=== PATIENT | female | born 1955 | race Caucasian/White ===

== ENCOUNTER 2023-05-27 10:16 | Inpatient (IN) ==
--- NOTE | 2023-05-05 11:04 | PAT Medication Instructions ---
Medication Instructions Date of Service May 05, 2023 Home Medications alprazolam 0.25 mg tablet (Xanax) 0.25 mg PO TID PRN calcium 500 mg tablet 600 mg PO QAM cholecalciferol (vitamin D3) 25 mcg (1,000 unit) chewable tablet (Vitamin D3) 25 mcg PO QAM cyanocobalamin (vitamin B-12) 500 mcg chewable tablet 5,000 mcg PO QAM cyclobenzaprine 10 mg tablet 10 mg PO TID PRN escitalopram oxalate 10 mg tablet (Lexapro) 10 mg PO HS gabapentin 300 mg capsule 300 mg PO BID gabapentin 300 mg capsule 600 mg PO HS levothyroxine 50 mcg tablet 50 mcg PO QAM losartan 100 mg tablet (Cozaar) 100 mg PO BID magnesium 250 mg tablet 250 mg PO HS oxycodone 5 mg tablet 5 - 10 mg PO Q4H PRN pantoprazole 40 mg tablet,delayed release (Protonix) 40 mg PO QAM promethazine 25 mg tablet 25 mg PO DIRECTED PRN sumatriptan succinate 100 mg tablet (Imitrex) 100 mg PO DIRECTED PRN sumatriptan succinate 6 mg/0.5 mL subcutaneous pen injector (Imitrex STATdose Pen) 6 mg subcut DIRECTED PRN Continue as directed promethazine 25 mg tablet 25 mg PO DIRECTED PRN(if needed) sumatriptan succinate 100 mg tablet (Imitrex) 100 mg PO DIRECTED PRN(if needed) sumatriptan succinate 6 mg/0.5 mL subcutaneous pen injector (Imitrex STATdose Pen) 6 mg subcut DIRECTED PRN(if needed) DO NOT take the morning of surgery calcium 500 mg tablet 600 mg PO QAM cholecalciferol (vitamin D3) 25 mcg (1,000 unit) chewable tablet (Vitamin D3) 25 mcg PO QAM cyanocobalamin (vitamin B-12) 500 mcg chewable tablet 5,000 mcg PO QAM losartan 100 mg tablet (Cozaar) 100 mg PO BID Take morning of surgery With a small sip of water, OTHERWISE NOTHING TO EAT OR DRINK AFTER MIDNIGHT: alprazolam 0.25 mg tablet (Xanax) 0.25 mg PO TID PRN(if needed) cyclobenzaprine 10 mg tablet 10 mg PO TID PRN(if needed) gabapentin 300 mg capsule 300 mg PO BID levothyroxine 50 mcg tablet 50 mcg PO QAM oxycodone 5 mg tablet 5 - 10 mg PO Q4H PRN(if needed) pantoprazole 40 mg tablet,delayed release (Protonix) 40 mg PO QAM Take evening before surgery alprazolam 0.25 mg tablet (Xanax) 0.25 mg PO TID PRN(if needed) cyclobenzaprine 10 mg tablet 10 mg PO TID PRN(if needed) escitalopram oxalate 10 mg tablet (Lexapro) 10 mg PO HS gabapentin 300 mg capsule 300 mg PO BID gabapentin 300 mg capsule 600 mg PO HS losartan 100 mg tablet (Cozaar) 100 mg PO BID magnesium 250 mg tablet 250 mg PO HS oxycodone 5 mg tablet 5 - 10 mg PO Q4H PRN(if needed) Other Notes If you have any questions please call us at [phone] or [phone] or [phone] or [phone]
--- NOTE | 2023-05-08 14:33 | Anesthesiology Consultation ---
Date of Service May 08, 2023 Assessment & Plan (1) Encounter for pre-operative examination: Patient unable to void at [facility] clinic, will complete UA at a local lab. Chart Review Chart Review: Pending: Refer to Additional Notes / Consult section and Patient seen in Pre Admission Testing Teaching & Discussion Pre-Anesthesia Teaching/Discussion Notes: Instructed NPO after midnight before surgery, except medications with 15 cc of water. Medication instructions provided according to the [facility] guidelines. History Surgery Operation Date: 05/27/23 10:05 Proposed Procedures p L3-L5 Decompression and Fusion, Spinal Cord Monitoring - Natan Patton DO Height/Weight Height: 5 ft 7 in Weight: 85.7 kg Allergies Allergy/AdvReac Type Severity Reaction Status Date / Time No Known Allergies Allergy Verified 05/05/23 09:02 Medications Home Medications Medication Instructions Recorded Confirmed Last Taken alprazolam 0.25 mg tablet (Xanax) 0.25 mg PO TID PRN Anxiety 05/05/23 05/05/23 Unknown calcium 500 mg tablet 600 mg PO QAM 05/05/23 05/05/23 Unknown cholecalciferol (vitamin D3) 25 25 mcg PO QAM 05/05/23 05/05/23 Unknown mcg (1,000 unit) chewable tablet (Vitamin D3) cyanocobalamin (vitamin B-12) 500 5,000 mcg PO QAM 05/05/23 05/05/23 Unknown mcg chewable tablet cyclobenzaprine 10 mg tablet 10 mg PO TID PRN Spasms 05/05/23 05/05/23 Unknown escitalopram oxalate 10 mg tablet 10 mg PO HS 05/05/23 05/05/23 Unknown (Lexapro) gabapentin 300 mg capsule 300 mg PO BID 05/05/23 05/05/23 Unknown gabapentin 300 mg capsule 600 mg PO HS 05/05/23 05/05/23 Unknown levothyroxine 50 mcg tablet 50 mcg PO QAM 05/05/23 05/05/23 Unknown losartan 100 mg tablet (Cozaar) 100 mg PO BID 05/05/23 05/05/23 Unknown magnesium 250 mg tablet 250 mg PO HS 05/05/23 05/05/23 Unknown oxycodone 5 mg tablet 5 - 10 mg PO Q4H PRN Pain 05/05/23 05/05/23 Unknown pantoprazole 40 mg tablet,delayed 40 mg PO BID 05/05/23 05/08/23 Unknown release (Protonix) promethazine 25 mg tablet 25 mg PO DIRECTED PRN Migraine 05/05/23 05/05/23 Unknown Headache sumatriptan succinate 100 mg 100 mg PO DIRECTED PRN Migraine 05/05/23 05/05/23 Unknown tablet (Imitrex) Headache sumatriptan succinate 6 mg/0.5 mL 6 mg subcut DIRECTED PRN 05/05/23 05/05/23 Unknown subcutaneous pen injector (Imitrex Migraine Headache STATdose Pen) Past Medical History Medical History (Updated 05/08/23 @ 14:44 by Nuris Holguin PA-C) Hx of concussion fell on ice 20 yrs ago > resolved Nausea and vomiting after administration of anesthetic agent in past, but none with more recent procedures Nerve pain in back and legs; denies recent change or worsening GERD (gastroesophageal reflux disease) controlled, stable per pt Hiatal hernia Hypothyroidism Depression Anxiety Migraine Hypertension controlled, stable per pt Patient denies h/o stroke, seizures, heart attack, heart failure, DM, blood clots/DVTs or blood transfusions. Exercise / Class Metabolic Activity III < 4 Walking/Shop/Light housework (limitations with current orthopedic status, denies chest discomfort or shortness of breath with usual activities) Past Surgical History Surgical History History of ankle surgery right History of carpal tunnel release right History of esophagogastroduodenoscopy (EGD) History of colonoscopy History of hysterectomy History of cholecystectomy History of appendectomy [place] teeth extracted History of nasal septoplasty History of tonsillectomy History of cardiac cath very remote hx > no stents Past Anesthesia History No Hx of Anesthesia Complications and No Family Hx of Anesthesia Complications History of PONV No Hx of Motion Sickness and History of PONV (remote, no issues with recent procedures) Social History Smoking Status: Former smoker Do You Dip or Chew Tobacco: No Smoking End Date: 20 yrs ago Hx Alcohol Use: Yes Alcohol type: wine alcohol intake frequency: holidays/special occasions only Hx Substance Use: Yes substance use type: marijuana Substance Use Type Other:: marijuana > uses on rare occ. advised 3 day or longer hold Review of Systems Snoring, denies witnessed apneas. Patient denies chest pain, shortness of breath, dyspnea on exertion, fever, chills, cough, wheezing, or palpitations. Physical Exam Vital Signs Vitals BP 121/74 P 73 TEMP 97.5 SP02 95% on RA RESP 17 Physical Patient resting comfortably in chair in no acute distress, alert and oriented, responding appropriately throughout visit Full cervical extension range of motion without pain TMD 3 finger breadths Mallampati Score 2 Dentition: chipped tooth front upper, denies loose teeth, caps/crowns, implants or bridges Lungs: normal respiratory effort. Good air movement, clear throughout to auscultation, no adventitious breath sounds Cardiac: regular rate and rhythm, no murmurs noted Carotid arteries: negative bruit bilat Lab Results Anesthesia Preop Results Results Anesthesia Widget: PT 11.0 Seconds (9.0-12.0) 05/08/23 PTT 30 Seconds (21-31) 05/08/23 INR 1.0 (0.9-1.1) 05/08/23 Blood Type B Positive 05/08/23 Antibody Screen NEGATIVE 05/08/23 Testing Laboratory Results 05/07/2023 WBC: 5.1 H/H: 13/37 PLATELETS: 298 SODIUM: 141 POTASSIUM: 4.5 CHLORIDE: 105 CO2: 29 BUN: 12 CREATININE: 0.7 GLUCOSE: 91 Electrocardiogram Date: 09/12/22 Sinus rhythm, rate 68 bpm Chest X-Ray Date: 05/08/23 A few left basilar linear densities favor scarring or subsegmental atelectasis. Otherwise, the lungs are clear. The heart is normal in size. No pleural effusions. No pneumothorax. No acute fractures. Prior cholecystectomy. Eventration of the right hemidiaphragm is noted. IMPRESSION: No acute process. Echocardiogram Date: 03/27/21 EF 55-60% Normal LV wall motion Grade I diastolic dysfunction No significant valvular pathology Stress Test Date: 03/27/21 METS 10 MPHR 83% Inconclusive secondary to inability to achieve target HR No ischemic ECG changes at the level of exercise achieved
[~2023-05-27 10:16] MED LIST: ACETAMINOPHEN 500 MG TAB PO SCH; CeleBREX 200 MG CAP PO SCH; GABAPENTIN 300 MG CAP PO SCH; LACTATED RINGER'S 1,000 ML IV SCH; LR 60ML/HR IV SCH; ceFAZolin 2000MG 2,000 MG/15 ML SYR IV SCH
[2023-05-27] MEDS ORDERED: ONDANSETRON INJ 2 MG/ML 2 ML VIAL ONE (10:36)
[2023-05-27] MEDS ORDERED: DEXAMETHASONE SOD INJ 4 MG/ML VIAL ONE (10:36)
[2023-05-27] MEDS ORDERED: LIDOCAINE 2% 2 ML VIAL/AMP(20MG/ML) INFIL ONE ×2 (10:36→10:37)
[2023-05-27] MEDS ORDERED: PROPOFOL IV EMULSION 10 MG/ML 20 ML VIAL IV ONE ×2 (10:36→14:44)
[2023-05-27] MEDS ORDERED: MIDAZOLAM HCL 1 MG/ML 2ML VIAL ONE (10:37)
[2023-05-27] MEDS ORDERED: fentaNYL citrate PF 100 MCG/2 ML VIAL ONE ×2 (10:37→13:16)
[2023-05-27] MEDS ORDERED: ROCURONIUM BROMIDE 10 MG/ML 5 ML VIAL IV ONE ×10 (10:37→13:17)
[2023-05-27] MEDS ORDERED: SCOPOLAMINE 1 MG TDSY TD ONE ×2 (11:00→11:01)
[2023-05-27] MEDS ORDERED: ONDANSETRON INJ 2 MG/ML 2 ML VIAL IV PRN ×2 (11:01→16:23)
[2023-05-27] MEDS ORDERED: ATROPINE SULFATE 0.1 MG/ML 10ML SYR IV PRN (11:01)
[2023-05-27] MEDS ORDERED: ePHEDrine sulfate 50 MG/ML AMP IV PRN (11:01)
[2023-05-27] MEDS ORDERED: HYDROmorphone INJ 1 MG/ML SYRINGE IV PRN (11:01)
--- NOTE | 2023-05-27 12:22 | History & Physical Bridge Note ---
Date of Service May 27, 2023 History & Physical Bridge Note I have examined the patient, reviewed the History & Physical and in the interval since the performance of the History & Physical I have noted the following changes of clinical significance: no changes noted
--- NOTE | 2023-05-27 12:23 | History & Physical Report ---
Date of Service May 27, 2023 Assessment & Plan (1) Neurogenic claudication due to lumbar spinal stenosis: Plan: L3-5 decompression and fusion History of Present Illness Chief Complaint: Back and leg pain Primary Care Provider: Natan Burgess Allergies Allergy/AdvReac Type Severity Reaction Status Date / Time No Known Allergies Allergy Verified 05/27/23 10:41 Home Medications Medication Instructions Recorded Confirmed Type alprazolam 0.25 mg tablet (Xanax) 0.25 mg PO TID PRN Anxiety 05/05/23 05/27/23 History calcium 500 mg tablet 600 mg PO QAM 05/05/23 05/27/23 History cholecalciferol (vitamin D3) 25 25 mcg PO QAM 05/05/23 05/27/23 History mcg (1,000 unit) chewable tablet (Vitamin D3) cyanocobalamin (vitamin B-12) 500 5,000 mcg PO QAM 05/05/23 05/27/23 History mcg chewable tablet cyclobenzaprine 10 mg tablet 10 mg PO TID PRN Spasms 05/05/23 05/27/23 History escitalopram oxalate 10 mg tablet 10 mg PO HS 05/05/23 05/27/23 History (Lexapro) gabapentin 300 mg capsule 300 mg PO BID 05/05/23 05/27/23 History gabapentin 300 mg capsule 600 mg PO HS 05/05/23 05/27/23 History levothyroxine 50 mcg tablet 50 mcg PO QAM 05/05/23 05/27/23 History losartan 100 mg tablet (Cozaar) 100 mg PO BID 05/05/23 05/27/23 History magnesium 250 mg tablet 250 mg PO HS 05/05/23 05/27/23 History oxycodone 5 mg tablet 5 - 10 mg PO Q4H PRN Pain 05/05/23 05/27/23 History pantoprazole 40 mg tablet,delayed 40 mg PO BID 05/05/23 05/27/23 History release (Protonix) promethazine 25 mg tablet 25 mg PO DIRECTED PRN Migraine 05/05/23 05/27/23 History Headache sumatriptan succinate 100 mg 100 mg PO DIRECTED PRN Migraine 05/05/23 05/27/23 History tablet (Imitrex) Headache sumatriptan succinate 6 mg/0.5 mL 6 mg subcut DIRECTED PRN 05/05/23 05/27/23 History subcutaneous pen injector (Imitrex Migraine Headache STATdose Pen) Past Med/Surg History Medical History (Updated 05/27/23 @ 12:22 by Natan Patton DO) Hx of concussion fell on ice 20 yrs ago > resolved Nausea and vomiting after administration of anesthetic agent in past, but none with more recent procedures Nerve pain in back and legs; denies recent change or worsening GERD (gastroesophageal reflux disease) controlled, stable per pt Hiatal hernia Hypothyroidism Depression Anxiety Migraine Hypertension controlled, stable per pt Surgical History History of ankle surgery right History of carpal tunnel release right History of esophagogastroduodenoscopy (EGD) History of colonoscopy History of hysterectomy History of cholecystectomy History of appendectomy [place] teeth extracted History of nasal septoplasty History of tonsillectomy History of cardiac cath very remote hx > no stents Social History Smoking Status: Former smoker Smoking End Date: 20 yrs ago; Second Hand Exposure: No; Do You Dip or Chew Tobacco: No; Tobacco Cessation Education Requested by Patient: No Hx Alcohol Use: Yes Alcohol type: wine Hx Substance Use: Yes Substance Use Type Other:: marijuana > uses on rare occ. advised 3 day or longer hold Preferred Language: Japanese Communication Ability: Effective Chess Instructor Required: No Beliefs That Will Affect Care: None Current Living Situation: Alone Other Information That Helps Us Care for You: No Feels Safe at Home: Yes Safety Concerns: Feels Safe At This Time Assistive Devices: Glasses and Walker Physical Exam Physical Exam: Patient is alert and oriented Heart regular rhythm Lungs clear Results & Data Results & Data Vital Signs (Past 12 Hours) Vital Signs Temp Pulse Resp BP Pulse Ox O2 Del Method 05/27/23 10:47 36.5 C 80 20 155/92 H 99 Room Air
[2023-05-27] MEDS ORDERED: FAMOTIDINE/PF 20 MG/2 ML VIAL IV ONE (12:41)
[2023-05-27] MEDS ORDERED: ceFAZolin 330 MG/ML 1 GM VIAL ONE (12:45)
[2023-05-27] MEDS ORDERED: BUPIVACAINE/EPINEPHRINE 0.25% 1:200,000 30 ML VIAL ONE (12:45)
[2023-05-27] MEDS ORDERED: SUGAMMADEX SODIUM 200 MG/2 ML VIAL IV ONE (13:18)
[2023-05-27] MEDS ORDERED: FLOSEAL HEMOSTATIC MATRIX 10ML TOP ONE (13:53)
[2023-05-27] MEDS ORDERED: ePHEDrine sulfate 50 MG/5 ML SYR ONE (14:22)
[2023-05-27] MEDS ORDERED: MoRPHine SULFATE 2 MG/ML CARP ONE (14:42)
--- NOTE | 2023-05-27 15:03 | Operative Report ---
Post Operative Report Pre & Post Diagnosis Operation Date: 05/27/23 11:25 Pre-Op Diagnosis: Neurogenic claudication due to lumbar spinal stenosis Compression fracture of L5. Spondylolisthesis at L4-L5. Post-Op Diagnosis: Same I identified the patient and participated in the time-out.: Yes Procedure Operation Date: 05/27/23 11:25 Actual Procedures #1 revision decompression with bilateral medial facetectomies and foraminotomies L3-L4 L4-5. #2 posterior spinal fusion L3-L4 L4-L5. #3 kyphoplasty of L4-5. #4 posterior spinal fusion L3-L5. #5 placement of posterior instrumentation L3- L5. #6 interbody fusion L3-L4 open #7 placement of Spira 10 x 26 mm cage at L3- L4. #8 placement locally harvested morselized autograft in the posterior gutters. #9 placement of I factor in the interbody space and infuse collagen sponge, and bone graft in the posterior lateral gutters. Surgeon Natan Patton, College Recruiter Sudarshan Sigala Estimated Blood Loss 150 Findings Consistent with Post-Op Diagnosis Specimens None Indications This is a 67-year-old female who presents above-mentioned diagnosis of failed course of nonoperative care she is here for surgical intervention. Description of Procedure Patient met with identified informed consent obtained. Patient was then taken to the operative suite underwent patient placed in a prone position on the [place] table on top the Boni frame. All bony promises well-padded eyes inspected to ensure no external pressure placed upon the. This point the lumbar spine was prepped and draped in normal sterile fashion. Sharp dissection with the assistance of Bovie cautery was performed down to exposing the remaining lamina of L3-L4 and the transverse processes of L3 L4-5 bilaterally. From caudal to cephalad fashion revision complete laminectomy of L4 and L3 was performed including bilaterally facetectomies and foraminotomies addressing severe spinal stenosis. Pedicle screws then placed at L3 L4-5 bilaterally with the assistance of fluoroscopy. Prior to placement of the L5 pedicle screws Kyphon balloons were inserted in the vertebral body sequentially inflated with fluoroscopic visualization and approximately 4 and half cc of Kyphon cement injected into the L5 vertebral body for kyphoplasty. This was followed by placement of the L5 pedicle screws. Appropriate size karine was then contoured and placed. By way of transforaminal approach on the left complete discectomy of L3-L4 was performed endplates guarded to subcortical bleeding bone and a 10 x 26 mm Spira cage with I factor tapped in position. The rods and locked in final position bilaterally. The transverse processes of L3 L4-5 burred to subcortical bleeding bone. Infuse collagen sponge combined with remaining bone graft was placed in the posterior gutters. 15 round STACY drain inserted. The incision was then closed with 1 Vicryl to fascia 2-0 Vicryl subcutaneously and 4 Monocryl for final skin closure. Steri-Strips sterile dressing placed. Patient waken taken to PACU in stable condition. Please note spinal cord monitoring visualized at the procedure no changes noted. Lastly Sudarshan Sigala was present at the entire procedure and on the patient positioning complex portion of the surgery and final skin closure. I attest to the content of the Intraoperative Record and any orders documented therein. Any exceptions are noted below.
--- NOTE | 2023-05-27 15:15 | Fluoroscopy Report ---
INTRAOPERATIVE RADIOGRAPHS CLINICAL HISTORY: L3-L5 spinal fusion. Fluoro time: 113 seconds Ka,r: 110.87 mGy FINDINGS: 3 spot fluoroscopic views of the lumbar spine are presented. There has been discectomy at L 3-L4 with laminectomy and posterior fusion at L3-L5. Interpedicular screws are present at all levels. The orthopedic hardware appears intact. Suspect vertebroplasty cement in the body of L5. IMPRESSION: Intraoperative images from lumbar spinal fusion surgery as above. Electronically signed by: Gilbert Sorensen M.D. 05/27/2023 3:14 PM
[2023-05-27] MEDS: fentaNYL citrate PF 100 MCG/2 ML VIAL IV PRN ×2 (15:58→16:03)
[2023-05-27] MEDS ORDERED: METOCLOPRAMIDE HCL INJ 5 MG/ML 2 ML VIAL IV PRN (16:23)
[2023-05-27] MEDS ORDERED: ONDANSETRON 4 MG OD TAB PO PRN (16:23)
[2023-05-27] MEDS ORDERED: LORazepam 0.5 MG in SYRINGE 0.25 ML IV PRN (16:23)
[2023-05-27] MEDS ORDERED: FAMOTIDINE 20 MG TAB PO PRN (16:23)
[2023-05-27] MEDS ORDERED: bisacodyL 10 MG SUPP PR PRN (16:23)
[2023-05-27] MEDS ORDERED: LORazepam 0.5 MG TAB PO PRN (16:23)
[2023-05-27] MEDS ORDERED: ALUMINUM/MAGNESIUM SUSP 30 ML UDC PO PRN (16:23)
[2023-05-27] MEDS ORDERED: diphenhydrAMINE Capsule 25 MG CAP PO PRN (16:23)
[2023-05-27] MEDS ORDERED: ALPRAZolam 0.25 MG TABLET PO PRN (16:23)
[2023-05-27] MEDS ORDERED: traMADol HCL 50 MG TABLET PO PRN (16:23)
[2023-05-27] MEDS ORDERED: SOD PHOSPHATE/SOD BIPHOSPHATE ENEMA 132 ML BTL PR PRN (16:23)
[2023-05-27] MEDS ORDERED: NALOXONE HCL 0.4 MG/1 ML VIAL/CARP IV PRN (16:23)
[2023-05-27] MEDS ORDERED: PROMETHAZINE HCL 25 MG TAB PO PRN (16:23)
[2023-05-27] MEDS ORDERED: PROMETHAZINE HCL 12.5 MG in SODIUM CHLORIDE 0.9% 50 ML IV PRN (16:23)
[2023-05-27] MEDS ORDERED: ACETAMINOPHEN 500 MG TAB PO PRN (16:23)
[2023-05-27] MEDS ORDERED: MAGNESIUM HYDROXIDE SUSP 30 ML UDC PO PRN (16:23)
[2023-05-27] MEDS ORDERED: ACETAMINOPHEN 1,000 MG/100 ML VIAL IV PRN (16:23)
[2023-05-27] MEDS ORDERED: HYDROmorphone INJ 0.5 MG/0.5 ML SYR IV PRN (16:23)
[2023-05-27] MEDS ORDERED: DO NOT ADMINISTER PNEUMOCOCCAL VACCINE PRN (16:23)
[2023-05-27] MEDS ORDERED: DO NOT ADMINISTER FLU VACCINE PRN (16:23)
[2023-05-27] MEDS ORDERED: SUMATRIPTAN SUCCINATE 6 MG/0.5 ML SQ PRN (16:23)
[2023-05-27] MEDS ORDERED: [UNRECOGNIZED DRUG - OTHER] SQ PRN (16:23)
[2023-05-27] MEDS ORDERED: SUMAtriptan succinate 100 MG TAB PO PRN (16:23)
[2023-05-27] MEDS: SODIUM CHLORIDE 0.9% 1,000 ML IV SCH (16:49)
[2023-05-27] MEDS: CHECK SCOPOLAMINE PATCH PLACEMENT SCH (17:14)
[2023-05-27] MEDS: oxyCODONE HCL IR 5 MG TAB (IMMEDIATE RELEASE) PO PRN (17:36)
--- NOTE | 2023-05-27 17:40 | Hospitalist Consultation ---
Date of Consultation May 27, 2023 Assessment & Plan (1) Neurogenic claudication due to lumbar spinal stenosis: POD#0 L3-L5 decompression and fusion by Dr. Patton Activity and wound care orders as per ortho Pain control with bowel regimen PT/OT Monitor H/H for acute blood loss anemia and transfuse blood products PRN EBL 150 cc (2) Hypertension: Chronic, stable Noted that patient takes losartan 100 mg twice daily which is above recommended dose. Dose confirmed via outpatient PCP note. (3) Hypothyroidism: Chronic, stable Continue levothyroxine (4) GERD (gastroesophageal reflux disease): Chronic, stable Continue PPI (5) Depression: (6) Anxiety: Chronic, stable Continue home meds DVT PROPHYLAXIS TEDs/SCDs as per spine Ortho Patient seen in collaboration with Dr. Mancia. Thank you for this consultation. We will follow the patient with you during their hospital stay. You can reach a [facility] of the [facility]12 via the [facility] role in [place] Text. Supervising Physician Co-Signing Physician Notes Attending addendum The patient was seen and examined in medical floor She is a status post L3-L5 decompression fusion Minimal pain at the back On examination Lying in bed comfortably Remains hemodynamically stable Chest-clear to auscultate bilaterally Heart-S1, [id number] Abdomen-benign Extremities-1+ edema right side but negative on the left Labs and imaging studies reviewed Status post lumbar back surgery remains medically stable Agree with assessment and plan as outlined above by Wilma Mancia History of Present Illness Reason for Consultation: Postop medical management Requesting Physician: Dr. Patton Attending Physician: Natan Patton DO History of Present Illness 67-year-old female with PMH HTN, hypothyroidism, GERD, migraines, anxiety, depression, and other problems listed below who is s/p L3-L5 decompression and fusion today by Dr. Patton. History is obtained from the patient and review of PCP records scanned into the chart. Postoperative, the patient is doing well. She reports her pain is well-controlled. She denies numbness, tingling, weakness of the lower extremities. No chest pain or shortness of breath. Denies lightheadedness and dizziness. No abdominal pain or nausea. Swift catheter is in place draining clear yellow urine. Allergies Allergy/AdvReac Type Severity Reaction Status Date / Time No Known Allergies Allergy Verified 05/27/23 10:41 Home Medications Medication Instructions Recorded Confirmed Type alprazolam 0.25 mg tablet (Xanax) 0.25 mg PO TID PRN Anxiety 05/05/23 05/27/23 History calcium 500 mg tablet 600 mg PO QAM 05/05/23 05/27/23 History cholecalciferol (vitamin D3) 25 25 mcg PO QAM 05/05/23 05/27/23 History mcg (1,000 unit) chewable tablet (Vitamin D3) cyanocobalamin (vitamin B-12) 500 5,000 mcg PO QAM 05/05/23 05/27/23 History mcg chewable tablet cyclobenzaprine 10 mg tablet 10 mg PO TID PRN Spasms 05/05/23 05/27/23 History escitalopram oxalate 10 mg tablet 10 mg PO HS 05/05/23 05/27/23 History (Lexapro) gabapentin 300 mg capsule 300 mg PO BID 05/05/23 05/27/23 History gabapentin 300 mg capsule 600 mg PO HS 05/05/23 05/27/23 History levothyroxine 50 mcg tablet 50 mcg PO QAM 05/05/23 05/27/23 History losartan 100 mg tablet (Cozaar) 100 mg PO BID 05/05/23 05/27/23 History magnesium 250 mg tablet 250 mg PO HS 05/05/23 05/27/23 History oxycodone 5 mg tablet 5 - 10 mg PO Q4H PRN Pain 05/05/23 05/27/23 History pantoprazole 40 mg tablet,delayed 40 mg PO BID 05/05/23 05/27/23 History release (Protonix) promethazine 25 mg tablet 25 mg PO DIRECTED PRN Migraine 05/05/23 05/27/23 History Headache sumatriptan succinate 100 mg 100 mg PO DIRECTED PRN Migraine 05/05/23 05/27/23 History tablet (Imitrex) Headache sumatriptan succinate 6 mg/0.5 mL 6 mg subcut DIRECTED PRN 05/05/23 05/27/23 History subcutaneous pen injector (Imitrex Migraine Headache STATdose Pen) Patient History Medical History (Updated 05/27/23 @ 17:38 by IZZY Beckham) GERD (gastroesophageal reflux disease) controlled, stable per pt Hypothyroidism Hypertension controlled, stable per pt Hx of concussion fell on ice 20 yrs ago > resolved Nausea and vomiting after administration of anesthetic agent in past, but none with more recent procedures Nerve pain in back and legs; denies recent change or worsening Hiatal hernia Depression Anxiety Migraine Surgical History History of ankle surgery right History of carpal tunnel release right History of esophagogastroduodenoscopy (EGD) History of colonoscopy History of hysterectomy History of cholecystectomy History of appendectomy [place] teeth extracted History of nasal septoplasty History of tonsillectomy History of cardiac cath very remote hx > no stents Social History Smoking Status: Former smoker Smoking End Date: 20 yrs ago; Second Hand Exposure: No; Do You Dip or Chew Tobacco: No; Tobacco Cessation Education Requested by Patient: No Hx Alcohol Use: Yes Alcohol type: wine Hx Substance Use: Yes Substance Use Type Other:: marijuana > uses on rare occ. advised 3 day or longer hold Preferred Language: [place] Zealander Communication Ability: Effective Manager Reporting Required: No Beliefs That Will Affect Care: None Current Living Situation: Alone Other Information That Helps Us Care for You: No Feels Safe at Home: Yes Safety Concerns: Feels Safe At This Time Assistive Devices: Glasses and Walker Physical Exam Constitutional: WD/WN, vitals as above no acute distress Eyes: PERRL, conjunctivae normal, anicteric sclerae ENMT: external ear and nose normal, oropharynx normal Respiratory: normal respiratory effort, lungs clear to auscultation Cardiovascular: Rate/Rhythm: regular rate and regular rhythm Vessels: normal peripheral pulses Extremities: no edema Gastrointestinal (Abdomen): normal bowel sounds, soft, nontender, no hepatosplenomegaly Musculoskeletal: no cyanosis or clubbing, extremities motor strength 5/5 S/p back surgery, pedal pushes and pulls strong bilaterally, drain in place draining bloody drainage Skin: no rashes, warm and dry Neurologic: PERRL, EOMI, accommodation nl, no face palsy, no dysarthria Psychiatric: A+Ox3, euthymic affect Results & Data Results & Data Vital Signs (Past 12 Hours) Vital Signs Temp Pulse Pulse Resp BP BP Pulse Ox 05/27/23 17:16 68 16 142/78 H 100 05/27/23 16:50 36.6 C 68 16 140/81 96 05/27/23 16:25 36.5 C 67 16 158/81 H 98 05/27/23 16:20 36.4 C L 72 15 157/90 H 95 05/27/23 16:10 73 14 154/87 H 92 05/27/23 16:00 71 12 179/92 H 93 05/27/23 15:50 66 14 170/103 H 100 05/27/23 15:40 66 14 150/91 H 100 05/27/23 15:33 36.2 C L 73 18 173/99 H 100 05/27/23 10:47 36.5 C 80 20 155/92 H 99 O2 Del Method O2 Flow Rate 05/27/23 17:16 Room Air 05/27/23 16:50 Room Air 05/27/23 16:25 Room Air 05/27/23 16:20 Room Air 05/27/23 16:10 Room Air 05/27/23 16:00 Room Air 05/27/23 15:50 Oxymask 4 05/27/23 15:40 Oxymask 6 05/27/23 15:33 Oxymask 10 05/27/23 10:47 Room Air
--- NOTE | 2023-05-27 17:59 | Anesthesiology Progress Note ---
Date of Service May 27, 2023 Anesthesia Post Procedure Vital Signs Vital Signs: Temp Pulse Pulse Resp BP BP Pulse Ox 05/27/23 17:16 68 16 142/78 H 100 05/27/23 16:50 36.6 C 68 16 140/81 96 05/27/23 16:25 36.5 C 67 16 158/81 H 98 05/27/23 16:20 36.4 C L 72 15 157/90 H 95 05/27/23 16:10 73 14 154/87 H 92 05/27/23 16:00 71 12 179/92 H 93 05/27/23 15:50 66 14 170/103 H 100 05/27/23 15:40 66 14 150/91 H 100 05/27/23 15:33 36.2 C L 73 18 173/99 H 100 05/27/23 10:47 36.5 C 80 20 155/92 H 99 O2 Del Method O2 Flow Rate 05/27/23 17:16 Room Air 05/27/23 16:50 Room Air 05/27/23 16:25 Room Air 05/27/23 16:20 Room Air 05/27/23 16:10 Room Air 05/27/23 16:00 Room Air 05/27/23 15:50 Oxymask 4 05/27/23 15:40 Oxymask 6 05/27/23 15:33 Oxymask 10 05/27/23 10:47 Room Air Pain Intensity Left Hip: Pain Intensity: 5 Back: Pain Intensity: 4 Transfer of Care Handoff Completed per policy Notes Mental Status: alert / awake / arousable and participated in evaluation Patient Amnestic to Procedure: Yes Nausea / Vomiting: adequately controlled Pain: adequately controlled Airway Patency, RR, SpO2: stable & adequate BP & HR: stable & adequate Hydration State: stable & adequate Anesthetic Complications: no major complications apparent and Pt Satisfied with anesthetic care
[2023-05-27] MEDS: HYDROmorphone INJ 1 MG/ML SYRINGE IV PRN ×2 (19:30→23:02)
[2023-05-27] MEDS: GABAPENTIN 600 MG TAB PO SCH (21:01)
[2023-05-27] MEDS: DOCUSATE SODIUM/SENNA 50/8.6MG TAB PO SCH (21:02)
[2023-05-27] MEDS: PANTOprazole 40 MG TAB PO SCH (21:02)
[2023-05-27] MEDS: ESCITALOPRAM OXALATE 10 MG TAB PO SCH (21:02)
[2023-05-27] MEDS: LOSARTAN POTASSIUM 50 MG TAB PO SCH (21:02)
[2023-05-27] MEDS: MAGNESIUM OXIDE 400 MG TAB PO SCH (21:03)
[2023-05-27] MEDS: ceFAZolin 2000MG 2,000 MG/15 ML SYR IV SCH (21:09)
[2023-05-28] MEDS: CHECK SCOPOLAMINE PATCH PLACEMENT SCH ×4 (00:01→23:42)
[2023-05-28] MEDS: oxyCODONE HCL IR 5 MG TAB (IMMEDIATE RELEASE) PO PRN ×5 (01:22→20:18)
[2023-05-28] MEDS: SODIUM CHLORIDE 0.9% 1,000 ML IV SCH (01:59)
[2023-05-28] MEDS: HYDROmorphone INJ 1 MG/ML SYRINGE IV PRN ×3 (02:05→22:14)
[2023-05-28] MEDS: LEVOTHYROXINE SODIUM 50 MCG TABLET PO SCH (05:04)
[2023-05-28] MEDS: ceFAZolin 2000MG 2,000 MG/15 ML SYR IV SCH (05:04)
[2023-05-28] MEDS: POLYETHYLENE (MIRALAX) 17 GM PACK PO SCH ×4 (05:04→23:43)
[2023-05-28 07:30] LABS: Basophils # (auto) 0.01 K/uL (0.00-0.20); Basophils % (auto) 0.1 %; Eosinophils # (auto) 0.01 K/uL (0.00-0.50); Eosinophils % (auto) 0.1 %; Hematocrit (blood only) 28.6 % (37.0-47.0); Hemoglobin 9.9 g/dl (12.0-16.0); Immature Granulocytes # (auto) 0.03 K/uL (0.01-0.20); Immature Granulocytes % (auto) 0.3 %; Lymphocytes # (auto) 1.96 K/uL (1.20-3.40); Lymphocytes % (auto) 20.5 %; Mean Corpuscular Hemoglobin 30.9 pg (25.0-34.0); Mean Corpuscular Hgb Conc 34.6 g/dL (32.0-36.0); Mean Corpuscular Volume 89.4 fL (80.0-100.0); Mean Platelet Volume 9.7 fL (9.4-12.4); Monocytes # (auto) 0.95 K/uL (0.11-0.59); Monocytes % (auto) 9.9 %; Neutrophils # (auto) 6.59 K/uL (1.40-6.50); Neutrophils % (auto) 69.1 %; Platelet Count 229 K/uL (130-400); RDW Coefficient of Variation 12.2 % (11.5-14.5); RDW Standard Deviation 39.3 fL (36.4-46.3); White Blood Count 9.55 K/ul (4.8-10.8)
[2023-05-28 07:42] LABS: BUN Creatinine Ratio 14.8 (10-20); Calcium 8.3 mg/dl (8.6-10.3); Creatinine Clr Calc Pharmacy 111.1 ml/min; Est GFR (African American) 113.2 ml/min; Est GFR (Non-African American) 97.6 ml/min; Potassium 3.9 mmol/L (3.5-5.1)
[2023-05-28] MEDS: CHOLECALCIFEROL 1,000 UNITS 25 MCG TAB PO SCH (08:05)
[2023-05-28] MEDS: LOSARTAN POTASSIUM 50 MG TAB PO SCH ×2 (08:05→20:19)
[2023-05-28] MEDS: GABAPENTIN 300 MG CAP PO SCH ×2 (08:05→12:41)
[2023-05-28] MEDS: CYANOCOBALAMIN (B-12) 2,500 MCG TABLET PO SCH (08:05)
[2023-05-28] MEDS: CALCIUM CARBONATE 1250MG TAB PO SCH (08:05)
[2023-05-28] MEDS: PANTOprazole 40 MG TAB PO SCH ×2 (08:05→20:20)
[2023-05-28] MEDS: dexAMETHasone 6 MG in SYRINGE 0 ML IV SCH (08:06)
--- NOTE | 2023-05-28 11:20 | Orthopedic Progress Note ---
Date of Service May 28, 2023 Assessment & Plan (1) Neurogenic claudication due to lumbar spinal stenosis: Plan: At this time we will continue physical therapy monitor STACY output hopefully discharge home in the next few days. I will order an LSO brace to be worn when out of bed and ambulating. She has severe multilevel osteoporosis and is at risk for adjacent level fracture. Admission and Anticipated Discharge Date Admission Date: May 27, 2023 Subjective Back pain controlled leg pain improved Physical Exam Physical Exam: Patient is in the chair at the bedside. Is constricted testing. Is comfortable. Results & Data Vital Signs (Past 12 Hours) Vital Signs Temp Pulse Resp BP BP Pulse Ox O2 Del Method 05/28/23 07:13 36.7 C 79 16 107/68 96 Room Air 05/28/23 06:03 71 107/67 96 Room Air 05/28/23 03:24 36.4 C L 74 18 100/64 95 Room Air 05/27/23 23:20 36.4 C L 73 16 126/72 96 Room Air
--- NOTE | 2023-05-28 12:40 | Hospitalist Progress Note ---
Date of Service May 28, 2023 Assessment & Plan (1) Neurogenic claudication due to lumbar spinal stenosis: Plan: POD#1 L3-L5 decompression and fusion by Dr. Patton Activity and wound care orders as per ortho Pain control with bowel regimen PT/OT Hemoglobin stable at 9.9, EBL 150 cc Continue to monitor with daily CBC (2) Hypertension: Plan: Chronic, stable Noted that patient takes losartan 100 mg twice daily which is above recommended dose. Dose confirmed via outpatient PCP not (3) Hypothyroidism: Plan: Chronic, stable Continue levothyroxine (4) GERD (gastroesophageal reflux disease): Plan: Chronic, stable Continue PPI (5) Depression: (6) Anxiety: Plan: Chronic, stable Continue home meds DVT PROPHYLAXIS TEDs/SCDs as per spine Ortho Patient seen in collaboration with Dr. Jones Thank you for this consultation. We will follow the patient with you during their hospital stay. You can reach a member of the [facility]ist Team 22/12 via the [facility] role in [place] Text. Admission and Anticipated Discharge Date Admission Date: May 27, 2023 Supervising Physician Co-Signing Physician Notes delayed entry date of service noted above Attending Addendum: care coordinated with ALEXANDRE Alma Vance please refer to her notes for full details, I agree with her notes patient seen and examined, records reviewed by myself as well diagnoses and plan of care as per ALEXANDRE Alma Jones MD Subjective Seen and examined in follow up in 320-1. Feeling well today. Able to participate with therapy. Some surgical pain this morning. Denies any lightheadedness, chest pain, shortness of breath, nausea, vomiting, abdominal pain. Urinating without difficulty. Not passing flatus yet. Having difficulty sleeping overnight due to requiring melatonin at home. Review of Systems Review of Systems: At least ten systems reviewed and negative except as noted in the HPI. Physical Exam Physical Exam: Gen: WD/WN, NAD, sitting in bedside chair, A&Ox3 HEENT: Normocephalic, atraumatic, conjunctivae moist, sclerae anicteric, mucous membranes moist Lung: Clear to Auscultation bilaterally, no wheezes/rales/rhonchi Heart: Regular rate, regular rhythm, no murmurs, rubs, or gallops Abdomen: Soft, NT, ND +BS x 4 Extremities: +spinal dressing c/d/i. STACY drain visualized, no edema Skin: Warm, no rash Results & Data Results & Data Vital Signs (Past 12 Hours) Vital Signs Temp Pulse Resp BP Pulse Ox O2 Del Method 05/28/23 07:13 36.7 C 79 16 107/68 96 Room Air 05/28/23 06:03 71 107/67 96 Room Air 05/28/23 03:24 36.4 C L 74 18 100/64 95 Room Air Laboratory Results Short CBC 05/28/23 Range/Units 06:38 WBC 9.55 (4.8-10.8) K/ul Hgb 9.9 L (12.0-16.0) g/dl Hct 28.6 L (37.0-47.0) % Plt Count 229 (130-400) K/uL BMP 05/28/23 06:38 Sodium 136 Potassium 3.9 Chloride 105 Carbon Dioxide 27 BUN 8 Creatinine 0.54 L Glucose 97 Calcium 8.3 L Diagnostic Findings Lumbar Spine X-Ray 05/27/23 11:25 INTRAOPERATIVE RADIOGRAPHS CLINICAL HISTORY: L3-L5 spinal fusion. Fluoro time: 113 seconds Ka,r: 110.87 mGy FINDINGS: 3 spot fluoroscopic views of the lumbar spine are presented. There has been discectomy at L3-L4 with laminectomy and posterior fusion at L3-L5. Interpedicular screws are present at all levels. The orthopedic hardware appears intact. Suspect vertebroplasty cement in the body of L5. IMPRESSION: Intraoperative images from lumbar spinal fusion surgery as above. Electronically signed by: Gilbert Sorensen M.D. 05/27/2023 3:14 PM
[2023-05-28] MEDS ORDERED: MELATONIN 3 MG TAB PO PRN (13:33)
[2023-05-28] MEDS: hydrOXYzine HCl 25 MG TAB PO PRN (20:18)
[2023-05-28] MEDS: GABAPENTIN 600 MG TAB PO SCH (20:19)
[2023-05-28] MEDS: DOCUSATE SODIUM/SENNA 50/8.6MG TAB PO SCH (20:20)
[2023-05-28] MEDS: MAGNESIUM OXIDE 400 MG TAB PO SCH (20:20)
[2023-05-28] MEDS: ESCITALOPRAM OXALATE 10 MG TAB PO SCH (20:20)
[2023-05-29] MEDS: HYDROmorphone INJ 1 MG/ML SYRINGE IV PRN ×4 (01:39→23:05)
[2023-05-29] MEDS: oxyCODONE HCL IR 5 MG TAB (IMMEDIATE RELEASE) PO PRN ×4 (04:18→21:27)
[2023-05-29] MEDS: LEVOTHYROXINE SODIUM 50 MCG TABLET PO SCH (05:29)
[2023-05-29 08:24] LABS: Basophils # (auto) 0.04 K/uL (0.00-0.20); Basophils % (auto) 0.4 %; Eosinophils # (auto) 0.05 K/uL (0.00-0.50); Eosinophils % (auto) 0.5 %; Hematocrit (blood only) 29.6 % (37.0-47.0); Hemoglobin 9.8 g/dl (12.0-16.0); Immature Granulocytes # (auto) 0.04 K/uL (0.01-0.20); Immature Granulocytes % (auto) 0.4 %; Lymphocytes # (auto) 2.54 K/uL (1.20-3.40); Lymphocytes % (auto) 23.9 %; Mean Corpuscular Hemoglobin 30.7 pg (25.0-34.0); Mean Corpuscular Hgb Conc 33.1 g/dL (32.0-36.0); Mean Corpuscular Volume 92.8 fL (80.0-100.0); Mean Platelet Volume 9.7 fL (9.4-12.4); Monocytes # (auto) 1.46 K/uL (0.11-0.59); Monocytes % (auto) 13.7 %; Neutrophils # (auto) 6.51 K/uL (1.40-6.50); Neutrophils % (auto) 61.1 %; Platelet Count 229 K/uL (130-400); RDW Coefficient of Variation 12.4 % (11.5-14.5); RDW Standard Deviation 42.4 fL (36.4-46.3); Red Blood Count 3.19 M/uL (4.20-5.40); White Blood Count 10.64 K/ul (4.8-10.8)
[2023-05-29 08:36] LABS: BUN Creatinine Ratio 22.6 (10-20); Calcium 8.7 mg/dl (8.6-10.3); Creatinine Clr Calc Pharmacy 96.7 ml/min; Est GFR (African American) 108.1 ml/min; Est GFR (Non-African American) 93.3 ml/min; Potassium 3.8 mmol/L (3.5-5.1)
[2023-05-29] MEDS: dexAMETHasone 6 MG in SYRINGE 0 ML IV SCH (08:36)
[2023-05-29] MEDS: LOSARTAN POTASSIUM 50 MG TAB PO SCH ×2 (08:36→20:43)
[2023-05-29] MEDS: GABAPENTIN 300 MG CAP PO SCH ×2 (08:37→12:52)
[2023-05-29] MEDS: CYANOCOBALAMIN (B-12) 2,500 MCG TABLET PO SCH (08:37)
[2023-05-29] MEDS: PANTOprazole 40 MG TAB PO SCH ×2 (08:37→20:43)
[2023-05-29] MEDS: CHOLECALCIFEROL 1,000 UNITS 25 MCG TAB PO SCH (08:37)
[2023-05-29] MEDS: CALCIUM CARBONATE 1250MG TAB PO SCH (08:38)
[2023-05-29] MEDS: hydrOXYzine HCl 25 MG TAB PO PRN (10:56)
--- NOTE | 2023-05-29 15:11 | Orthopedic Progress Note ---
Date of Service May 29, 2023 Assessment & Plan (1) Neurogenic claudication due to lumbar spinal stenosis: Plan: This time continue physical therapy monitor STACY output anticipate discharge tomorrow. Admission and Anticipated Discharge Date Admission Date: May 27, 2023 Subjective Back pain controlled leg pain improved Physical Exam Physical Exam: Patient is comfortable is consented testing. Results & Data Vital Signs (Past 12 Hours) Vital Signs Temp Pulse Resp BP Pulse Ox O2 Del Method 05/29/23 07:40 36.4 C L 71 16 104/64 99 Room Air
--- NOTE | 2023-05-29 15:44 | Hospitalist Progress Note ---
Date of Service May 29, 2023 Assessment & Plan (1) Neurogenic claudication due to lumbar spinal stenosis: Plan: POD#2 L3-L5 decompression and fusion by Dr. Patton Activity and wound care orders as per ortho Pain control with bowel regimen PT/OT Hemoglobin stable at 9.9 -> 9.8, EBL 150 cc Continue to monitor with daily CBC (2) Hypertension: Plan: Chronic, stable Noted that patient takes losartan 100 mg twice daily which is above recommended dose. Dose confirmed via outpatient PCP not (3) Hypothyroidism: Plan: Chronic, stable Continue levothyroxine (4) GERD (gastroesophageal reflux disease): Plan: Chronic, stable Continue PPI (5) Depression: (6) Anxiety: Plan: Chronic, stable Continue home meds DVT PROPHYLAXIS TEDs/SCDs as per spine Ortho Patient seen in collaboration with Dr. Jones Thank you for this consultation. We will follow the patient with you during their hospital stay. You can reach a member of the [facility]ist Team 22/12 via the [facility]ist role in [place] Text. Admission and Anticipated Discharge Date Admission Date: May 27, 2023 Supervising Physician Co-Signing Physician Notes delayed entry date of service noted above Attending Addendum: care coordinated with ALEXANDRE Vance please refer to her notes for full details, I agree with her notes patient seen and examined, records reviewed by myself as well diagnoses and plan of care as per ALEXANDRE Jones MD Subjective Seen and examined in 320, postop day 2 following spinal surgery. Continuing to feel better. Up with therapy with some minimal surgical site discomfort. Tolerating diet without issue. No nausea or vomiting. Denies any fever, chills, lightness, headache, chest pain, shortness of breath, nausea, vomiting, abdominal pain, dysuria. Had multiple bowel movements this morning. Orthopedic service planning for discharge tomorrow. Review of Systems Review of Systems: At least ten systems reviewed and negative except as noted in the HPI. Physical Exam Physical Exam: Gen: WD/WN, NAD, laying in bed resting, A&Ox3 HEENT: Normocephalic, atraumatic, conjunctivae moist, sclerae anicteric, mucous membranes moist Lung: Clear to Auscultation bilaterally, no wheezes/rales/rhonchi Heart: Regular rate, regular rhythm, no murmurs, rubs, or gallops Abdomen: Soft, NT, ND +BS x 4 Extremities: Spinal dressing c/d/i. STACY drain visualized, no edema. strength 5/5 BLE Skin: Warm, no rash Results & Data Results & Data Vital Signs (Past 12 Hours) Vital Signs Temp Pulse Resp BP Pulse Ox O2 Del Method 05/29/23 15:28 36.8 C 77 16 116/71 95 Room Air 05/29/23 07:40 36.4 C L 71 16 104/64 99 Room Air Laboratory Results Short CBC 05/29/23 Range/Units 07:11 WBC 10.64 (4.8-10.8) K/ul Hgb 9.8 L (12.0-16.0) g/dl Hct 29.6 L (37.0-47.0) % Plt Count 229 (130-400) K/uL BMP 05/29/23 07:11 Sodium 137 Potassium 3.8 Chloride 104 Carbon Dioxide 29 BUN 14 Creatinine 0.62 Glucose 97 Calcium 8.7 Diagnostic Findings Lumbar Spine X-Ray 05/27/23 11:25 INTRAOPERATIVE RADIOGRAPHS CLINICAL HISTORY: L3-L5 spinal fusion. Fluoro time: 113 seconds Ka,r: 110.87 mGy FINDINGS: 3 spot fluoroscopic views of the lumbar spine are presented. There has been discectomy at L3-L4 with laminectomy and posterior fusion at L3-L5. Interpedicular screws are present at all levels. The orthopedic hardware appears intact. Suspect vertebroplasty cement in the body of L5. IMPRESSION: Intraoperative images from lumbar spinal fusion surgery as above. Electronically signed by: Gilbert Sorensen M.D. 05/27/2023 3:14 PM
[2023-05-29] MEDS: DOCUSATE SODIUM/SENNA 50/8.6MG TAB PO SCH (20:41)
[2023-05-29] MEDS: ESCITALOPRAM OXALATE 10 MG TAB PO SCH (20:43)
[2023-05-29] MEDS: GABAPENTIN 600 MG TAB PO SCH (20:43)
[2023-05-29] MEDS: MAGNESIUM OXIDE 400 MG TAB PO SCH (20:43)
[2023-05-30] MEDS: hydrOXYzine HCl 25 MG TAB PO PRN (00:43)
[2023-05-30] MEDS: LEVOTHYROXINE SODIUM 50 MCG TABLET PO SCH (05:50)
[2023-05-30] MEDS: oxyCODONE HCL IR 5 MG TAB (IMMEDIATE RELEASE) PO PRN ×2 (07:58→12:02)
[2023-05-30] MEDS: CALCIUM CARBONATE 1250MG TAB PO SCH (07:59)
[2023-05-30] MEDS: PANTOprazole 40 MG TAB PO SCH (07:59)
[2023-05-30] MEDS: LOSARTAN POTASSIUM 50 MG TAB PO SCH (07:59)
[2023-05-30] MEDS: CYANOCOBALAMIN (B-12) 2,500 MCG TABLET PO SCH (07:59)
[2023-05-30] MEDS: CHOLECALCIFEROL 1,000 UNITS 25 MCG TAB PO SCH (07:59)
[2023-05-30] MEDS: dexAMETHasone 6 MG in SYRINGE 0 ML IV SCH (07:59)
[2023-05-30] MEDS: GABAPENTIN 300 MG CAP PO SCH (07:59)
--- NOTE | 2023-05-30 08:10 | Discharge Summary ---
Date of Service May 30, 2023 Discharge Data Consultations 05/27/23 16:23 Consult Hospitalist Routine Procedures Performed Operation Date: 05/27/23 11:25 Actual Procedures p L3-L5 Decompression and Fusion, Spinal Cord Monitoring(Not Applicable) - Natan Patton DO [facility] Course (1) Neurogenic claudication due to lumbar spinal stenosis: Patient is a pleasant 67-year-old female with history, physical examination, and radiographic images, consistent with the above diagnosis. For this reason she was brought to the operating room on 05/27/2023 and undergone a lumbar decompression fusion from L3-L5. This was performed by Dr. Patton under general anesthesia. She left the operating room with a STACY drain and Swift in place and was transferred to PACU in stable condition. She was then transferred to the orthopedic floor. She was seen by physical therapy postop day #1. Her pain is well-controlled. She is tolerating p.o. On postoperative day #3 she is deemed safe for home discharge. Her discharge instructions were to avoid lifting anything heavier than 5 to 7 pounds. She needs to change her dressing once daily until there is no drainage once there is no drainage she may start showering. Walking was encouraged. She was to follow-up with our office approximately 2 weeks out from surgery or sooner if she develops any increased pain worsening leg symptoms fevers chills or drainage from the incision.
[2023-05-30 09:53] LABS: Hematocrit (blood only) 30.5 % (37.0-47.0); Hemoglobin 10.2 g/dl (12.0-16.0); Mean Corpuscular Hemoglobin 30.5 pg (25.0-34.0); Mean Corpuscular Hgb Conc 33.4 g/dL (32.0-36.0); Mean Corpuscular Volume 91.3 fL (80.0-100.0); Mean Platelet Volume 9.7 fL (9.4-12.4); Platelet Count 253 K/uL (130-400); RDW Coefficient of Variation 12.4 % (11.5-14.5); RDW Standard Deviation 41.3 fL (36.4-46.3); Red Blood Count 3.34 M/uL (4.20-5.40); White Blood Count 8.32 K/ul (4.8-10.8)
[2023-05-30 09:55] LABS: BUN Creatinine Ratio 24.2 (10-20); Calcium 8.8 mg/dl (8.6-10.3); Creatinine Clr Calc Pharmacy 96.7 ml/min; Est GFR (African American) 108.1 ml/min; Est GFR (Non-African American) 93.3 ml/min; Potassium 3.5 mmol/L (3.5-5.1)
== END 2023-05-30 12:10 | disposition home or self-care (01) | DRG 454 ==
LOC: ASU 10:16 → 3E 15:06
DX: F41.9 Anxiety disorder, unspecified; K21.9 Gastro-esophageal reflux disease without esophagitis; Z79.890 Hormone replacement therapy; M48.062 Spinal stenosis, lumbar region with neurogenic claudication; F32.A Depression, unspecified; Z79.899 Other long term (current) drug therapy; I10 Essential (primary) hypertension; M80.08XA Age-related osteoporosis with current pathological fracture, vertebra(e), initial encounter for fracture; E03.9 Hypothyroidism, unspecified; Z87.891 Personal history of nicotine dependence